=== PATIENT | male | born 1960 | race Asian ===

== ENCOUNTER 2018-07-20 22:13 | Inpatient (IN) | payer MEDICAID, OTHER ==
[~2018-07-20] VITALS: Ht 162.6 cm; Wt 58.9 kg
[2018-07-20] MEDS ORDERED: ACETAMINOPHEN 325 MG TAB PO ONE (22:19)
[2018-07-20 23:58] LABS: Basophils # (auto) 0 uL; Basophils % (auto) 0.2 % (0.0-2.0); Eosinophils # (auto) 0.1 uL; Eosinophils % (auto) 0.6 % (0.0-7.0); Hemoglobin 14.8 g/dL (13.5-17.5); Lymphocytes # (auto) 0.6 uL; Lymphocytes % (auto) 4.6 % (10.0-50.0); Mean Corpuscular Hemoglobin 30.7 pg (28.0-32.0); Mean Corpuscular Hgb Conc. 33.6 g/dL (32.0-36.0); Mean Corpuscular Volume 91.2 fL (80.0-100.0); Monocytes % (auto) 7.6 % (0.0-12.0); Neutrophils # (auto) 11.9 uL; Nucleated Red Blood Cells % 0.1 %; Platelet Count (auto) 185 10^3/uL (140-450); Red Blood Cells 4.83 10^6/uL (4.5-5.90); Red Cell Distribution Width 13.3 % (11.8-14.3); White Blood Cell 13.7 10^3/uL (4.4-10.8)
[2018-07-21 00:13] LABS: Alanine Aminotransferase 34 U/L (16-61); Albumin 3.6 g/dL (3.4-5.0); Anion Gap 12 (5-15); Aspartate Aminotransferase 22 U/L (15-37); BUN/Creatinine Ratio 15.8; Blood Urea Nitrogen 18 mg/dL (7-18); Calcium 8.4 mg/dL (8.5-10.1); Carbon Dioxide 23 mmol/L (21-32); Chloride 106 mmol/L (98-107); GFR African American 85 mL/min; GFR Non-African American 71 mL/min; Glucose 119 mg/dL (74-106); Potassium 4.1 mmol/L (3.5-5.1); Sodium 141 mmol/L (136-145)
[2018-07-21] MEDS ORDERED: ACETAMINOPHEN 325 MG TAB PO ONE (00:15)
[2018-07-21 00:18] LABS: Alkaline Phosphatase 86 U/L (45-117); Bilirubin, Total 0.7 mg/dL (0.2-1.0); Total Protein 7.5 g/dL (6.4-8.2)
[2018-07-21] MEDS ORDERED: SODIUM CHLORIDE 0.9% 500 ML IV ONE (08:51)
[2018-07-21] MEDS ORDERED: cefTRIAXone 1GM/50ML D5W 50 ML IV ONE (09:00)
[2018-07-21] MEDS ORDERED: MORPHINE SULF INJ 2 MG/ML SYRINGE 1ML IV ONE (09:00)
[2018-07-21] MEDS ORDERED: ASPirin 325 MG TAB PO ONE (09:00)
[2018-07-21] MEDS ORDERED: AZITHROMYCIN 500MG/ 250ML 250 ML IV ONE (09:15)
[2018-07-21] MEDS ORDERED: IOHEXOL 350 MG/ML 100ML IJ ONE (09:19)
[2018-07-21 10:35] LABS: INR 1.02 (0.9-1.15)
[2018-07-21] MEDS ORDERED: ACETAMINOPHEN 500 MG TAB PO ONE (13:30)
[2018-07-21] MEDS ORDERED: ACETAMINOPHEN 500 MG TAB PO PRN (17:30)
[2018-07-21] MEDS ORDERED: NITROGLYCERIN 0.4 MG SL TAB SL PRN (17:30)
[2018-07-21] MEDS ORDERED: ONDANSETRON HCL 4 MG/2 ML VIAL IV PRN (17:30)
[2018-07-21] MEDS ORDERED: MORPHINE SULF INJ 2 MG/ML SYRINGE 1ML IV PRN ×2 (17:30)
[2018-07-21] MEDS ORDERED: HYDROcodone-ACET 5/325MG TAB PO PRN (17:30)
[2018-07-21] MEDS: SODIUM CHLORIDE 0.9% 1,000 ML IV SCH (18:26)
[2018-07-21] MEDS: PIPERACILLIN-TAZOB 3.375GM 100 ML IV SCH ×2 (18:30→23:56)
[2018-07-21] MEDS: TAMSULOSIN HYDROCHLORIDE 0.4 MG CAP PO SCH (18:31)
[2018-07-21 22:00] VITALS: BP 115/67
[2018-07-21] MEDS: DOCUSATE SOD 100 MG CAP PO SCH (22:28)
[2018-07-21] MEDS: FAMOTIDINE (10MG/ML) 2ML VL IV SCH (22:28)
[2018-07-22] VITALS (7 sets, daily range): BP systolic 102–123; BP diastolic 62–83
[2018-07-22] MEDS: SODIUM CHLORIDE 0.9% 1,000 ML IV SCH ×3 (01:02→16:04)
[2018-07-22 05:42] LABS: Basophils # (auto) 0 uL; Basophils % (auto) 0.3 % (0.0-2.0); Eosinophils # (auto) 0 uL; Eosinophils % (auto) 0.4 % (0.0-7.0); Hematocrit 41.8 % (41.0-53.0); Hemoglobin 13.9 g/dL (13.5-17.5); Lymphocytes # (auto) 1.2 uL; Lymphocytes % (auto) 14.6 % (10.0-50.0); Mean Corpuscular Hemoglobin 30.7 pg (28.0-32.0); Mean Corpuscular Hgb Conc. 33.3 g/dL (32.0-36.0); Mean Corpuscular Volume 92.1 fL (80.0-100.0); Monocytes # (auto) 0.8 uL; Monocytes % (auto) 10.2 % (0.0-12.0); Neutrophils # (auto) 6.1 uL; Neutrophils % (auto) 74.5 % (37.0-80.0); Nucleated Red Blood Cells % 0.1 %; Platelet Count (auto) 157 10^3/uL (140-450); Red Blood Cells 4.54 10^6/uL (4.5-5.90); Red Cell Distribution Width 12.8 % (11.8-14.3); White Blood Cell 8.2 10^3/uL (4.4-10.8)
[2018-07-22] MEDS: PIPERACILLIN-TAZOB 3.375GM 100 ML IV SCH ×2 (05:46→11:24)
[2018-07-22 06:02] LABS: BUN/Creatinine Ratio 12.6; Calcium 7.8 mg/dL (8.5-10.1); Magnesium 2.3 mg/dL (1.6-2.6); Potassium 3.7 mmol/L (3.5-5.1)
[2018-07-22 06:04] LABS: Bilirubin, Total 0.9 mg/dL (0.2-1.0); Total Protein 6.6 g/dL (6.4-8.2)
[2018-07-22] MEDS: DOCUSATE SOD 100 MG CAP PO SCH ×2 (10:05→21:33)
[2018-07-22] MEDS: FAMOTIDINE (10MG/ML) 2ML VL IV SCH (10:05)
[2018-07-22 10:51] LABS: Urine Bacteria NONE SEEN /hpf (None Seen); Urine Blood 1+ /uL (Negative); Urine Specific Gravity 1.007 (1.001-1.035); Urine WBC 24 /hpf (0 - 3)
[2018-07-22] MEDS: LEVOFLOXACIN 500MG 100 ML IV SCH (16:05)
[2018-07-22] MEDS: TAMSULOSIN HYDROCHLORIDE 0.4 MG CAP PO SCH (19:20)
[2018-07-22] MEDS: FAMOTIDINE 20 MG TAB PO SCH (21:33)
[2018-07-23 05:20] VITALS: BP 111/67
[2018-07-23] MEDS: SODIUM CHLORIDE 0.9% 1,000 ML IV SCH ×2 (06:08→18:25)
[2018-07-23 07:57] VITALS: BP 107/75
[2018-07-23 09:00] VITALS: BP 107/75
[2018-07-23] MEDS: LEVOFLOXACIN 500MG 100 ML IV SCH (09:20)
[2018-07-23] MEDS: FAMOTIDINE 20 MG TAB PO SCH ×2 (09:20→22:08)
[2018-07-23] MEDS: DOCUSATE SOD 100 MG CAP PO SCH ×2 (09:20→22:08)
[2018-07-23] MEDS ORDERED: LEVO-28 PO (14:03)
[2018-07-23] MEDS ORDERED: TAM04C PO (14:03)
[2018-07-23 14:13] VITALS: BP 105/66
[2018-07-23 16:53] VITALS: BP 120/75
[2018-07-23] MEDS: TAMSULOSIN HYDROCHLORIDE 0.4 MG CAP PO SCH (17:29)
[2018-07-23 22:00] VITALS: BP 105/79
[2018-07-24] MEDS: SODIUM CHLORIDE 0.9% 1,000 ML IV SCH (04:10)
[2018-07-24 05:00] VITALS: BP 109/71
[2018-07-24 08:00] VITALS: BP 114/71
[2018-07-24 09:00] VITALS: BP 106/68
[2018-07-24] MEDS: FAMOTIDINE 20 MG TAB PO SCH (09:41)
[2018-07-24] MEDS: DOCUSATE SOD 100 MG CAP PO SCH (09:41)
[2018-07-24] MEDS: LEVOFLOXACIN 500MG 100 ML IV SCH (09:42)
== END 2018-07-24 13:15 | disposition home or self-care (01) | DRG 720 ==
LOC: ER 22:13 → EDBD 22:13 → TELE 07-21 17:36 → TELE-WESTW 07-21 20:00 → WEST WING 07-23 09:22
PROVIDERS: ADMIT Nurse Practitioner Acute Care; ATTEND Internal Medicine
DX: A41.9 Sepsis, unspecified organism (principal); N30.90 Cystitis, unspecified without hematuria; J40 Bronchitis, not specified as acute or chronic; N40.0 Benign prostatic hyperplasia without lower urinary tract symptoms
CPT/HCPCS: 36415; 71045; 71275; 74176; 80053; 81001; 83605; 83735; 83880; 84154; 84484; 85025; 85610; 85730; 87040; 87086; 87804; 93005; 94761; 96365; 96366; 96368; 96375; G0378; J0696; J1956; J2543; J3490

== ENCOUNTER 2022-01-04 21:36 | Emergency (ER) | payer MEDICAID ==
[~2022-01-04] VITALS: Ht 162.6 cm; Wt 54.5 kg
[~2022-01-04 21:36] MED LIST: LEVO-28 PO; TAM04C PO
[2022-01-04 21:53] VITALS: BP 133/86
[2022-01-04] MEDS ORDERED: TETANUS-DIPTH-ACEL PERTUSSIS 0.5ML SYR Tdap IM ONE (22:00)
[2022-01-04] MEDS ORDERED: OXYCODONE W/ ACETAMINOPHEN 5/325MG TABLET PO ONE (22:00)
[2022-01-04] MEDS ORDERED: ONDANSETRON ODT 4 MG TAB PO ONE (22:00)
== END 2022-01-05 01:36 | disposition left against medical advice (07) ==
LOC: ER 21:36
DX: S01.83XA Puncture wound without foreign body of other part of head, initial encounter (principal); Z79.2 Long term (current) use of antibiotics; Z79.899 Other long term (current) drug therapy; Y04.2XXA Assault by strike against or bumped into by another person, initial encounter; Y93.89 Activity, other specified; Y92.89 Other specified places as the place of occurrence of the external cause; Y99.8 Other external cause status
CPT/HCPCS: 70450; 70486; 71045; 90715; Q0162

== ENCOUNTER 2024-01-21 04:30 | Emergency (ER) | payer MEDICAID ==
[~2024-01-21] VITALS: Ht 154.9 cm; Wt 64.9 kg
[~2024-01-21 04:30] MED LIST changes: -LEVO-28 PO; +LEVO500T91 PO; -TAM04C PO; +TAMS-35 PO
[2024-01-21 05:05] VITALS: BP 121/83; PULSE 110; RESP 16; TEMP 99.2; O2SAT 96
[2024-01-21] MEDS ORDERED: OSEL75CA5 PO (05:19)
--- NOTE | 2024-01-21 05:20 | ED.PDOC ---
GI ASSESSMENT Chief Complaint: Flu like Time Seen by MD: 04:43 Reviewed Notes: Nurses Notes, Medications, Allergies Allergies: Coded Allergies: NO KNOWN ALLERGIES (Unverified , 07/21/18) Home Meds Active Scripts Levofloxacin Hemihydrate (LEVOFLOXACIN) 500 Mg Tab, 1 TAB PO DAILY, #5 TAB Prov:OMID LANCASTER MD 07/23/18 Tamsulosin Hcl (Flomax) 0.4 Mg Cap, 0.4 MG PO QPM for 30 Days, CAP Prov:OMID LANCASTER MD 07/23/18 Information Source: Patient, Relative (Child) Mode of Arrival: Ambulatory Past Medical History PAST MEDICAL HISTORY: Denies Surgical History: Denies all surgeries Family History Family History: Unknown Social History Smoker: Non-Smoker Alcohol: Denies ETOH Use Drugs: Denies Drug Use Lives In: Home Constitutional: reports: chills, fatigue, fever, others (Body aches); denies: diaphoresis, malaise, sweats, weakness EENTM: reports: nasal discharge; denies: blurred vision, double vision, ear bleeding, ear discharge, ear drainage, ear pain, ear ringing, eye pain, eye redness, hearing loss, mouth pain, mouth swelling, nose bleeding, nose congestion, nose pain, photophobia, tearing, throat pain, throat swelling, voice changes, others Respiratory: reports: cough; denies: hemoptysis, orthopnea, SOB at rest, shortness of breath, SOB with excertion, stridor, wheezing, others Cardiovascular: denies: chest pain, dizzy spells, diaphoresis, Dyspnea on exertion, edema, irregular heart beat, left arm pain, lightheadedness, palpitations, PND, syncope, others Gastrointestinal: denies: abdomen distended, abdominal pain, blood streaked bowels, constipated, diarrhea, dysphagia, difficulty swallowing, hematemesis, melena, nausea, poor appetite, poor fluid intake, rectal bleeding, rectal pain, vomiting, others Genitourinary: denies: burning, dysuria, flank pain, frequency, hematuria, incontinence, penile discharge, penile sore, pain, testicle pain, testicle swelling, urgency, others Neurological: denies: dizziness, fainting, headache, left sided numbness, left sided weakness, numbness, paresthesia, pre-existing deficit, right sided numbness, right sided weakness, seizure, speech problems, tingling, tremors, weakness, others Musculoskeletal: denies: back pain, gout, joint pain, joint swelling, muscle pain, muscle stiffness, neck pain, others Integumetry: denies: bruises, change in color, change in hair/nails, dryness, laceration, lesions, lumps, rash, wounds, others Allergic/Immunocompromised: denies: Difficulty Healing, Frequent Infections, Hi ves, Itching, others Hematologic/Lymphatic: denies: anemia, blood clots, easy bleeding, easy bruising, swollen glands, others Endocrine: denies: excessive hunger, excessive sweating, excessive thirst, excessive urination, flushing, intolerance to cold, intolerance to heat, unexplained weight gain, unexplained weight loss, others Psychiatric: denies: anxiety, bipolar disorder, depression, hopeless, panic disorder, schizophrenia, sleepless, suicidal, others Physical Exam General Appearance: No Apparent Distress, Normal HEENT: Normal ENT Inspection, Pharynx Normal, TMs Normal Neck: Full Range of Motion, Non-Tender, Normal, Normal Inspection Respiratory: Chest Non-Tender, Lungs Clear, No Accessory Muscle Use, No Respiratory Distress, Normal Breath Sounds Cardiovascular: No Edema, No JVD, No Murmur, No Gallop, Normal Peripheral P ulses, Regular Rate/Rhythm Breast Exam: Deferred Gastrointestinal: No Organomegaly, Non Tender, No Pulsatile Mass, Normal Bowel Sounds, Soft Genitalia: Deferred Pelvic: Deferred Rectal: Deferred Extremities: No calf tenderness, Normal capillary refill, Normal inspection, Normal range of motion, Non-tender, No pedal edema Musculoskeletal : Apperance: Normal Neurologic: Alert, nonprofit manager II-XII nml as Tested, No Motor Deficits, Normal Affect, Normal Mood, No Sensory Deficits Cerebellar Function: Normal Reflexes: Normal Skin: Dry, Normal Color, Warm Lymphatic: No Adenopathy Was a procedure done? Was a procedure done?: No GI differential Dx Differential Diagnosis: Gastroenteritis X-Ray, Labs, Meds, VS Vital Signs Date Time Temp Pulse Resp B/P (MAP) Pulse Ox O2 Delivery O2 Flow Rate FiO2 01/21/24 05:05 99.2 110 16 121/83 (96) 96 99.2 01/21/24 05:05 110 16 96 Room Air 01/21/24 04:47 99.2 110 16 121/83 (38) 96 Time of 1ST Reevaluation: 05:18 Reevaluation 1ST: Improved Patient Education/Counseling: Diagnosis, Treatment, Prognosis, Need For Follow Up Family Education/Counseling: Diagnosis, Treatment, Prognosis, Need For Follow Up Departure 1 Departure Time of Disposition: 05:18 Impression: Primary Impression: Influenza Disposition: 01 HOME / SELF CARE / HOMELESS Condition: Stable e-Prescriptions Oseltamivir Phosphate (Tamiflu) 75 Mg Cap 1 CAP PO BID for 5 Days, #10 CAP Prov: JESSICA NOYOLA 01/21/24 Critical Care Note Critical Care Time?: No Stability Stability form required: JESSICA Miner Jan 21, 2024 05:20
== END 2024-01-21 05:24 | disposition home or self-care (01) ==
LOC: ER 04:30
DX: J11.1 Influenza due to unidentified influenza virus with other respiratory manifestations (principal); Z79.899 Other long term (current) drug therapy